=== PATIENT | female | born 1955 | race Caucasian/White ===

== ENCOUNTER 2021-06-29 11:09 | Emergency (ER) | payer MEDICARE, SELFPAY ==
[2021-06-29 12:00] VITALS: BP 132/86; PULSE 106; RESP 19; TEMP 36.9; O2SAT 98; BMI 28.1
--- NOTE | 2021-06-29 12:45 | HMH.EDUTC ---
[facility] [place] Clinical Impression: Sinusitis Qualifiers: Sinusitis location: unspecified location Chronicity: unspecified Qualified Code(s): J32.9 - Chronic sinusitis, unspecified Disposition: Home, Self-Care Condition on Discharge: Good Instructions: Sinusitis, DI for Sinusitis, DI for COVID-19 (Suspected or Confirmed ), Coronavirus Disease 2018, Preventing the Spread of Coronavirus Discharge Instructions Additional Instructions: *Monitor Temp, Over the counter Motrin or Tylenol as directed/as needed Tylenol every 4 hours and Motrin every 6 hours (as long as your family doctor has told you that you can take it) for fever or pain. and straight to ER if unable to lower temp less than 101.0 after medication given *Warm salt water gargles may help to soothe the throat *Throat Lozenges *Warm fluids like tea with honey may help to soothe the throat *Sleep elevated *Humidifier/Vaporizer *Flonase 2 sprays in each nostril daily but be aware that it may take 2-3 days before you notice improvement Take medication as prescribed Return if needed Follow up IMMEDIATELY for new or worsening symptoms or no Noticeable improvement over the next 48-72 hours. 911 for difficulty breathing or swallowing You were tested for today for COVID19 your test result should be back in the next 24-48 hours, you may call to the [facility] to see if your test results are back in the next 48 hours [phone] [facility] hours are 9am-9pm You was given a handout with instructions for Self Quarantine and Self isolation for while you wait on test results and what to do if they are positive If you are positive the Health Dept will be contacting you also Make sure to take your Vitamins Vit. C Vit D and Zinc if you can take them Prescriptions: Amoxicillin/Potassium Clav [Augmentin 875-125 Tablet] 1 tab PO Q12H 7 Days #14 tab Transmission Status: Pending to [facility] Fluticasone Propionate [Flonase 50mcg nasal spray 16gm] 1 spr NS DAILY #1 ml Transmission Status: Pending to [facility] Benzonatate [Tessalon Perle 100mg Cap*] 100 mg PO TID PRN #15 cap PRN Reason: Cough Transmission Status: Pending to [facility] Referrals: Gabriela Bahena [Primary Care Provider] - As needed Time of Disposition: 13:02 Medical Decision Making - Korey Inquiry Pt receiving controlled substance: No Korey was queried for this patient: No Vital Signs: 06/29/21 12:00 Temperature 98.5 F Temperature Source Oral Pulse Rate [Right Brachial] 106 H Respiratory Rate 19 Blood Pressure [Right Arm] 132/86 Blood Pressure Mean [Right Arm] 101 Blood Pressure Source [Right Arm] Automatic Cuff Blood Pressure Position [Right Arm] Sitting 02 Sat by Pulse Oximetry 98 Oxygen Delivery Method Room Air Orders (Tests/Meds): ORDERS Category Date Time Status Covid-19 Nasal PCR ([facility]) Routine Lab 06/29/21 12:57 Ordered [facility] HPI - General Stated complaint: headache, chest congestion Time Seen by Provider: 06/29/21 12:45 Mode of Arrival: Ambulatory Source of Information: Patient Limitations: No Limitations Description of Symptoms (Recalled from Triage Doc. by RN): PATIENT C/O HEADACHE, WET COUGH, AND CONGESTION X 2 DAYS HEENT Symptoms (Recalled from RN notes): Yes Resp Symptoms (Recalled from RN notes): Yes Skin Symptoms (Recalled from RN notes): No MS Symptoms (Recalled from RN notes): No Functional Status (Recalled from RN notes): WNL - History of Present Illness Provider Complaint: Patient state that she has been having sinus pain and congestion for close to a week but over the last couple of days she feels like it is trying to move into her chest State that she is having headache, body aches, sinus pressure drainage in the back of her throat and at times she will cough up some mucous States that she wanted to come in and get checked before it got too bad and moved into her chest - Related Data Previous Rx's Medication Instruction
[2021-06-29 13:12] VITALS: BP 132/86; PULSE 106; RESP 19; TEMP 36.9; O2SAT 98
== END 2021-06-29 13:15 | disposition home or self-care (01) ==
PROVIDERS: Emergency Provider Nurse Practitioner; PCP Nurse Practitioner Family
DX: J32.9 Chronic sinusitis, unspecified (principal); Z20.822 Contact with and (suspected) exposure to COVID-19
CPT/HCPCS: G0463; 99202; U0003

== ENCOUNTER 2023-11-11 14:10 | Emergency (ER) | payer MEDICARE, SELFPAY ==
--- NOTE | 2023-11-11 15:34 | ED_ITS ---
Discharge Plan Disposition Patient Disposition: Home, Self-Care Condition: Good Prescriptions Prescriptions: New cyclobenzaprine 10 mg Tablet 10 mg PO BID PRN (Reason: Muscle Spasm) Qty: 20 0RF methylprednisolone 4 mg Tablets,Dose Pack 4 mg PO DIRECTED 6 Days Qty: 21 0RF Rx Instructions: Take 1 pack as directed for 6 days No Action sucralfate 1 GM tablet 1 gm PO BID 10 Days Qty: 20 0RF ondansetron 4 MG tablet,disintegrating 4 mg PO TID PRN (Reason: Nausea) Qty: 10 0RF pantoprazole 40 MG tablet,delayed release (DR/EC) 40 mg PO DAILY 30 Days Qty: 30 0RF benzonatate 100 MG capsule 100 mg PO TID PRN (Reason: Cough) Qty: 15 0RF fluticasone propionate 120 SPR/BOT bottle 1 spr NS DAILY Qty: 1 0RF Rx Instructions: each nostril daily amoxicillin-pot clavulanate 1 EACH tablet 1 tab PO Q12H 7 Days Qty: 14 0RF Referrals Follow up/Referrals: Gabriela Bahena [Primary Care Provider] - See instructions Activity Restrictions/Add. Instructions Additional Instructions/Restrictions: Go home and rest. It would be best if you rested tomorrow too. No heavy lifting. No twisting. Take the oral medications as directed. The muscle relaxer (cyclobenzaprine--Flexeril) will make you drowsy, so don't drive or operate heavy machinery after taking it. Don't start the oral steroids (medrol dose pack) until tomorrow, since you had the shots in here today. Follow up with your regular doctor. GO TO THE ER FOR ANY WORSENING SYMPTOMS OR CONCERN, ESPECIALLY BOWEL OR BLADDER ISSUES, SADDLE AREA NUMBNESS, FEVER, ETC Clinical Impressions Clinical Impression: Right low back pain Instructions Patient Instructions: Sciatica, DI for Sciatica, Cyclobenzaprine, Methylprednisolone, Methylprednisolone Injection Discharge ED Provider: Maxime Best [facility] [place] HPI General Stated complaint: right back pain Time Seen by Provider: 11/11/23 15:33 History of Present Illness Provider Complaint: She states that she has had right sided low back pain that radiates down her right leg for the past 1 week. Related Data Previous Rx's Medication Instructions Recorded ondansetron 4 mg disintegrating 4 mg PO TID PRN Nausea ##10 01/02/20 tablet pantoprazole 40 mg tablet,delayed 40 mg PO DAILY 30 days #30 tabs 01/02/20 release sucralfate 1 gram tablet 1 gm PO BID 10 days #20 tabs 01/02/20 amoxicillin 875 mg-potassium 1 tab PO Q12H 7 days #14 tabs 06/29/21 clavulanate 125 mg tablet benzonatate 100 mg capsule 100 mg PO TID PRN Cough #15 caps 06/29/21 fluticasone propionate 50 1 spr NS DAILY #1 mL 06/29/21 mcg/actuation nasal spray,suspension cyclobenzaprine 10 mg tablet 10 mg PO BID PRN Muscle Spasm #20 11/11/23 tabs methylprednisolone 4 mg tablets in 4 mg PO DIRECTED 6 days #21 tabs 11/11/23 a dose pack Allergies Allergy/AdvReac Type Severity Reaction Status Date / Time No Known Allergies Allergy Unverified 01/02/20 08:11 [facility] Disclaimer: The information contained in this section may have been updated after the patient was seen, as this information can be updated by other users. Social History Smoking Status: Never smoker alcohol intake: never current occupational status: other Travel in the last 8 weeks: None housing: house ROS Obtained: Yes All systems reviewed & no additional complaints except as documented Constitutional Constitutional: Denies chills and Denies fever(s) Eyes Eyes: Denies eye discharge ENT Ears, Nose, Mouth, and Throat: Denies dizziness, Denies otalgia and Denies sore throat Cardiovascular Cardiovascular: Denies chest pain Respiratory Respiratory: Denies shortness of breath, Denies chest congestion, Denies cough, Denies stridor and Denies wheezing Gastrointestinal Gastrointestingal: Denies nausea or vomiting Musculoskeletal Musculoskeletal: Reports system reviewed and no additional complaints, except as documented and Denies arthralgias Integumentary/Breasts Skin/Breast: Denies rash Neurologic Neurologic: Reports as per HPI, Denies dizziness, Denies focal weakness and Denies paresthesias Allergic/Immunologic Allergic/Immunologic: Denies wheezing Physical Exam General General appearance: alert and in no apparent distress Head Head exam: atraumatic, normocephalic and normal inspection Eye Eye exam: Present normal appearance, PERRL and EOMI ENT ENT exam: Present normal exam, normal oropharynx, mucous membranes moist, TM's normal bilaterally and normal external ear exam Neck Neck exam: Present normal inspection, full ROM and trachea midline; Absent meningismus or lymphadenopathy Chest Chest inspection: Present normal inspection and symmetric chest wall rise; Absent tenderness Respiratory Respiratory exam: Present normal lung sounds bilaterally; Absent respiratory distress Cardiovascular Cardiovascular exam: Present regular rate and normal rhythm; Absent JVD Abdominal Exam Abdominal exam: Present soft and normal bowel sounds; Absent distention, tenderness or guarding Extremities Exam Extremities exam: Present normal inspection, full ROM and normal capillary refill; Absent calf tenderness Back Exam Back exam: Present normal inspection; Absent tenderness Neurological Exam Neurological exam: Present alert, oriented X3, CN II-XII intact, normal gait and reflexes normal; Absent motor sensory deficit Expanded Neurological Exam Cranial nerves: Normal: EOM function (II, III, IV, ), facial sensation (V), facial palsy (VII), gag reflex (IX), spinal accessory function (XI) and tongue deviation (XII) Cerebellar function: normal gait Motor strength - LUE: 5/5 Motor strength - RUE: 5/5 Motor strength - LLE: 5/5 Motor strength - RLE: 5/5 Sensory exam upper extremity: Normal: light touch and 2 point discrimination Sensory exam lower extremity: Normal: light touch and 2 point discrimination DTR: 2+: biceps (L), biceps (R), patellar (L), patellar (R), Achilles tendon (L) and Achilles tendon (R) Spinal cord function: Absent saddle anesthesia Psychiatric Psychiatric exam: Present normal affect and normal mood Skin Skin exam: Present warm, dry, intact and normal color Lymphatic Lymphatic Findings: no adenopathy Medical Decision Making Medical Records Medical records reviewed: No I reviewed the patient's medical records. Korey Inquiry Pt receiving controlled substance: No
[2023-11-11 15:35] VITALS: BP 186/96; PULSE 107; RESP 20; TEMP 36.5; O2SAT 97; BMI 32.8
[2023-11-11] MEDS: KETOROLAC 60MG/2ML VIAL 60 MG IM (15:57)
[2023-11-11] MEDS: METHYLPREDNISOLONE SOD SUCC 125MG VIAL 125 MG IM (15:57)
[2023-11-11 16:11] VITALS: BP 186/96; PULSE 107; RESP 20; TEMP 36.5; O2SAT 97
== END 2023-11-11 16:12 | disposition home or self-care (01) ==
PROVIDERS: Emergency Provider Nurse Practitioner Family; PCP Nurse Practitioner Family
DX: M54.41 Lumbago with sciatica, right side (principal)
CPT/HCPCS: 96372; 99212; 99214; G0463